=== PATIENT | female | born 1975 | race Caucasian/White ===

== ENCOUNTER 2020-11-09 11:45 | Outpatient (RCR) | payer OTHER, SELFPAY ==
[2014-12-16 12:04] VITALS: BMI 25.4
== END 2021-01-10 23:59 ==
LOC: IMMUN 11:45
PROVIDERS: PCP Internal Medicine; Referring Provider Family Medicine; Visit Provider Family Medicine
DX: Z23 Encounter for immunization (principal)
CPT/HCPCS: 0002A; 91300